=== PATIENT | female | born 1990 | race African-American/Black ===

== ENCOUNTER 2017-01-05 23:52 | Emergency (ER) | payer MEDICAID ==
[2017-01-06 01:40] LABS: ABSOLUTE EOSINOPHILS # (AUTO) 0.1 10^3/uL (0.0-0.6); ABSOLUTE LYMPHOCYTES (AUTO) 2.5 10^3/uL (0.5-4.7); ABSOLUTE MONOCYTES (AUTO) 0.4 10^3/uL (0.1-1.4); ABSOLUTE NEUT (AUTO) 2.9 10^3/uL (1.7-8.2); BASOPHILS % (AUTO) 0.3 % (0-2); EOSINOPHILS % (AUTO) 1.2 % (0-6); HEMATOCRIT 37.9 % (36.0-47.0); HEMOGLOBIN 12.5 g/dL (12.0-15.5); HGB HCT DIFFERENCE -0.4; LYMPHOCYTES % (AUTO) 42.3 % (13-45); MEAN CORPUSCULAR HEMOGLOBIN 25.3 pg (27.0-33.4); MEAN CORPUSCULAR VOLUME 77 fl (80-97); MONOCYTES % (AUTO) 6.3 % (3-13); RED BLOOD COUNT 4.94 10^6/uL (3.72-5.28); RED CELL DISTRIBUTION WIDTH 16.1 % (11.5-14.0); SEGMENTED NEUTROPHILS % (AUTO) 49.9 % (42-78); WHITE BLOOD COUNT 5.9 10^3/uL (4.0-10.5)
[2017-01-06 01:41] LABS: APPEARANCE,URINE CLEAR; BILIRUBIN,URINE NEGATIVE (NEGATIVE); GLUCOSE, URINE NEGATIVE (NEGATIVE); KETONES,URINE NEGATIVE (NEGATIVE); LEUKOCYTE ESTERASE,URINE NEGATIVE (NEGATIVE); NITRITE,URINE NEGATIVE (NEGATIVE); PROTEIN,URINE NEGATIVE (NEGATIVE); URINE SPECIFIC GRAVITY 1.021; UROBILINOGEN,URINE NEGATIVE mg/dL (<2.0)
--- NOTE | 2017-01-06 01:44 | ER Document Report ---
ED Medical Screen (RME) - General Chief Complaint: Pelvic Pain Stated Complaint: ABDOMINAL PAIN Time Seen by Provider: 01/06/17 01:41 Mode of Arrival: Ambulatory Information source: Patient Notes: Patient presents complaining of lower pelvic pain off and on over the past 3 months. Patient does report irregular menses. Patient states that lately the pelvic pain has started to worsen. Patient presently complains only of left lower pelvic pain. Patient states that she does have lower back tenderness chronically. Patient reports some mild nausea. Patient denies any fever, vomiting, diarrhea, urinary symptoms. Patient denies any vaginal bleeding or discharge. Last bowel movement was today and was normal. hx: TRAVEL OUTSIDE OF THE [place] IN LAST 30 DAYS: No Physical Exam - Vital signs Vitals: Temp Pulse Resp BP Pulse Ox 98.6 F 75 16 141/68 H 99 01/06/17 00:08 01/06/17 00:08 01/06/17 00:08 01/06/17 00:08 01/06/17 00:08 - Abdominal Tenderness: Tender - Left lower pelvic tenderness Course - Vital Signs Vital signs: Temp Pulse Resp BP Pulse Ox 98.6 F 75 16 141/68 H 99 01/06/17 00:08 01/06/17 00:08 01/06/17 00:08 01/06/17 00:08 01/06/17 00:08 - Laboratory Result Diagrams: 01/06/17 00:55 Laboratory results interpreted by me: 01/06/17 00:55 MCV 77 L MCH 25.3 L RDW 16.1 H
[2017-01-06 01:47] LABS: ADD ON TESTING BLD IN LAB ACKNOWLEDGE
[2017-01-06 02:20] LABS: ALANINE AMINOTRANSFERASE 40 U/L (9-52); ALBUMIN 4.5 g/dL (3.5-5.0); ALKALINE PHOSPHATASE 85 U/L (38-126); ANION GAP 13 (5-19); ASPARTATE AMINO TRANSFERASE 25 U/L (14-36); BILIRUBIN,DIRECT 0.4 mg/dL (0.0-0.4); BILIRUBIN,TOTAL 0.4 mg/dL (0.2-1.3); BLOOD UREA NITROGEN 12 mg/dL (7-20); CALCIUM 9.9 mg/dL (8.4-10.2); CARBON DIOXIDE 28 mmol/L (22-30); CHLORIDE 102 mmol/L (98-107); CREATININE RESULT 0.73 mg/dL (0.52-1.25); GLUCOSE 89 mg/dL (75-110); POTASSIUM 4.5 mmol/L (3.6-5.0); SODIUM 142.5 mmol/L (137-145); TOTAL PROTEIN 7.7 g/dL (6.3-8.2)
--- NOTE | 2017-01-06 02:49 | ER Document Report ---
ED GI/ - General Chief Complaint: Pelvic Pain Stated Complaint: ABDOMINAL PAIN Time Seen by Provider: 01/06/17 01:41 Mode of Arrival: Ambulatory Notes: Patient is a 26-year-old female comes emergency department for chief complaint of left-sided pelvic pain. She states that she has had this intermittently for the past 3 months, she states that it started to worsen over the past few days, she was evaluated by her primary provider within the past 2 weeks and had a pelvic examination, swabs, and a Pap smear. She states that she has a referral to [facility] pending but tonight the pain became more intense prompting her to come to emergency department. She denies nausea, vomiting, fever, dysuria, vaginal bleeding or discharge. She had a normal bowel movement earlier today. She is sexually active. She does not use contraceptive. She has irregular menses. Only past medical history reported is a . TRAVEL OUTSIDE OF THE [place] IN LAST 30 DAYS: No Past Medical History - General Information source: Patient - Social History Smoking Status: Never Smoker Frequency of alcohol use: None Drug Abuse: None Lives with: Family Family History: Reviewed & Not Pertinent - Medical History Medical History: Negative Surgical Hx: Negative - Immunizations Immunizations up to date: Yes Hx Diphtheria, Pertussis, Tetanus Vaccination: Yes Review of Systems - Review of Systems Constitutional: No symptoms reported EENT: No symptoms reported Cardiovascular: No symptoms reported Respiratory: No symptoms reported Gastrointestinal: See HPI Genitourinary: See HPI Female Genitourinary: See HPI Musculoskeletal: No symptoms reported Skin: No symptoms reported Hematologic/Lymphatic: No symptoms reported Neurological/Psychological: No symptoms reported Physical Exam - Vital signs Vitals: Temp Pulse Resp BP Pulse Ox 98.6 F 75 16 141/68 H 99 01/06/17 00:08 01/06/17 00:08 01/06/17 00:08 01/06/17 00:08 01/06/17 00:08 Interpretation: Normal - General General appearance: Appears well, Alert In distress: None - HEENT Head: Normocephalic, Atraumatic Eyes: Normal Conjunctiva: Normal Extraocular movements intact: Yes Eyelashes: Normal Pupils: PERRL Nasal: Normal Mouth/Lips: Normal Mucous membranes: Normal Pharynx: Normal Neck: Normal - Respiratory Respiratory status: No respiratory distress Chest status: Nontender Breath sounds: Normal. No: Decreased air movement, Wheezing Chest palpation: Normal - Cardiovascular Rhythm: Regular. No: Tachycardia Heart sounds: Normal auscultation, S1 appreciated, S2 appreciated Murmur: No - Abdominal Inspection: Normal Distension: No distension Bowel sounds: Normal Tenderness: Nontender. No: Tender, Guarding Organomegaly: No organomegaly - Back Back: Normal, Nontender. No: Tender - Extremities General upper extremity: Normal inspection, Nontender, Normal strength, Normal temperature General lower extremity: Normal inspection, Nontender, Normal strength, Normal temperature - Neurological Neuro grossly intact: Yes Cognition: Normal Orientation: AAOx4 [place] Coma Scale Eye Opening: Spontaneous Lauren Coma Scale Verbal: Oriented Lauren Coma Scale Motor: Obeys Commands [place] Coma Scale Total: 15 Speech: Normal Motor strength normal: LUE, RUE, LLE, RLE Sensory: Normal - Psychological Associated symptoms: Normal affect, Normal mood - Skin Skin Temperature: Warm Skin Moisture: Dry Skin Color: Normal Course - Re-evaluation Re-evalutation: I do not appreciate any tenderness in the abdomen or pelvis. Patient declines pelvic exam, states she just had one. Laboratory evaluation unremarkable. HCG is negative. Ultrasound showing trace free fluid around the left ovary, patient probably had an ovarian cyst which has now resolved. No acute or concerning abnormalities. Discussed results with patient, she states she is very relieved, provided her with a copy of her report, discussed follow-up recommendations and return precautions, patient states understanding and agreement. - Vital Signs Vital signs: Temp Pulse Resp BP Pulse Ox 97.5 F 80 16 122/73 100 01/06/17 04:16 01/06/17 04:16 01/06/17 04:16 01/06/17 04:16 01/06/17 04:16 - Laboratory Result Diagrams: 01/06/17 00:55 01/06/17 00:55 Laboratory results interpreted by me: 01/06/17 01/06/17 00:55 00:55 MCV 77 L MCH 25.3 L RDW 16.1 H Urine Ascorbic Acid 40 H Discharge - Discharge Clinical Impression: Pelvic pain Condition: Stable Disposition: HOME, SELF-CARE Additional Instructions: Your ultrasound does not show any concerning abnormality. There is a small amount of free fluid around the left ovary, this could be because you previously had an ovarian cyst which has popped/resolved, no current abnormalities are seen. Remaining laboratory workup is unremarkable. Follow- up with primary care provider. Take ibuprofen or similar medication if needed for discomfort. Return to emergency department for any concerning worsening symptoms including return or worsening pain, vomiting, fever, etc.
[2017-01-06 03:13] LABS: CHLAM PCR NOT DETECTED (NOT DETECT)
--- NOTE | 2017-01-06 03:50 | RADIOLOGY REPORT (SQ) ---
EXAM DESCRIPTION: U/S NON OB PEL TV W/DOPPLER CLINICAL HISTORY: 26 years Female, sharp left pelvic pain. Intermittent irregular menses. COMPARISON: None. TECHNIQUE: Complete transvaginal pelvic ultrasound. Color and spectral Doppler imaging of the ovaries. FINDINGS: Uterus measures 7.1 x 5.6 x 4.6 cm. Endometrial thickness of 0.8 cm. Cervix measures 1.7 cm in length. No myometrial abnormalities. Small amount of free fluid in the left adnexa. The right ovary is not visualized due to overlying bowel. The left ovary measures 2.6 x 1.5 x 1.4 cm. Color and spectral Doppler images demonstrate flow within the left ovary. IMPRESSION: 1. Small amount of free pelvic fluid. This may be physiologic however this could also be seen with inflammatory conditions of the pelvis. 2. No other abnormalities identified. The right ovary is not visualized.
[2017-01-06 04:17] VITALS: BP 122/73
== END 2017-01-06 04:16 | disposition home or self-care (01) ==
LOC: ER 23:52
DX: R10.2 Pelvic and perineal pain (principal); R10.9 Unspecified abdominal pain
CPT/HCPCS: 36415; 76830; 80053; 81001; 84703; 85025; 87491; 87591; 93976; 99284